=== PATIENT | male | born 1935 | race Caucasian/White ===

== ENCOUNTER 2017-04-07 12:40 | Day surgery (SDC) | payer MEDICARE, OTHER ==
[~2017-04-07] VITALS: Ht 182.9 cm; Wt 104.0 kg
[~2017-04-07 12:40] MED LIST: DABI150C PO; DILT60CA PO; DOFE0.25 PO; FENO160T7 PO; FENO200C PO; GLIP5TAB21 PO; MAGN500C4 PO; METF500T4 PO; OMEG1CAP2 PO; OMEP20CA11 PO; RANI150C4 PO; SAXA1TBM2 PO; Sodium Chloride LOK Flush 10 mL Syringe IV PRN; TELM20TA PO; fentaNYL-PF 50 mCg/mL 2 mL Inj IVPUSH PRN
[2017-04-07 13:11] VITALS: BP 118/71; PULSE 64; RESP 16; O2SAT 95
--- NOTE | 2017-04-07 13:58 | PCM.ENDEGD ---
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 Scope introduced esophagus. Esophagus showed normal shiny whitish mucosa consistent with squamous cell component. Z line was noted at 40 cm from the incisors. [place]-colored mucosa noted up to 42 cm. Narrow banding done. No ulcer mass erosion noted. 4 quadrant biopsies done. Scope further advanced to the stomach. In the antrum, there were about 5 clean-based ulcers 2-4 mm in size with surrounding edema. Biopsies were done at the largest sites Cardia fundus body antrum pylorus were all visualized. Retroflexion was done. Stomach was easily inflated and deflatable using air. Scope further advanced to the distal duodenum. Duodenum revealed normal villous structures with normal appearing folds without any mass ulcer erosion. Impression Ayers's esophagus Gastric ulcers Recommendation Continue PPI NSAIDs Presedation Assessment Risks and Benefits Informed consent was obtained from the patient after all risks and benefits including but not limited to drug reaction, infection, pain, bleeding, perforation, as well as alternatives were discussed. Patient monitoring Continuous pulse oximetry, cardiac monitoring, blood pressure monitoring, IV access, and oxygen at 2L per nasal cannula. Periprocedural Fentanyl: Fentanyl 50mcg Incrementally Midazolam: Midazolam 2mg Incrementally Complications There were no periprocedural complications identified. Post Procedure Plan Post Procedure Recommendations 1. Restrict activities today. 2. Resume normal activities in the morning. 3. Resume medications. 4. GERD behavioral modification: - Avoid fatty, acidic, spicy, large meals - Do not lie down after meals - Do not eat or drink anything for at least 2 1/2 hours before going to bed at night - Discontinue tobacco and alcohol - Decrease or avoid caffeine - Avoid chocolate and mints - Decrease weight - Avoid aspirin and non steroidal anti-inflammatory agents (NSAID) such as Aleve, Advil, Mobic, Naproxen, Ibuprofen, etc 5. Add proton pump inhibitor. Take 30 minutes before 1st meal of the day. 6. Patient informed of normal post procedure side effects as bloating, drowsiness, blood streaking in the stool 7. If gastric biopsy reveal H.pylori, continue with appropriate treatment 8. If small bowel biopsy reveals celiac, continue with appropriate treatment 9. Please don't hesitate to call me with any questions Elkin Valentine MD Apr 07, 2017 13:58
[2017-04-07 13:59] VITALS: BP 114/78; PULSE 68; RESP 16; O2SAT 93
[2017-04-07 14:09] VITALS: BP 109/64; PULSE 61; RESP 16; O2SAT 94
[2017-04-07] MEDS ORDERED: 0.9% Sodium Chloride 1,000 ML IV ONE (14:12)
--- NOTE | 2017-04-10 13:10 | PATH ---
SURGICAL PATHOLOGY Attending Physician:Elkin Valentine M.D. CASE STATUS: Signed Out PATIENT NAME: RAHEL JASMINE PID: [id number] : 1935 DATE COLLECTED:04/07/2017 00:00 SPECIMEN: 1: Gastric, Biopsy 2: Esophagus, Biopsy CLINICAL HISTORY: 1. GASTRIC ULCER BIOPSY 2. DISTAL ESOPHAGUS BIOPSY FINAL DIAGNOSIS: 1.GASTRIC ULCER BIOPSY: ANTRAL MUCOSA WITH CHANGES CONSISTENT WITH REACTIVE GASTROPATHY. Negative for evidence of Helicobacter on H&E stain. Negative for intestinal metaplasia. Negative for dysplasia and malignancy. 2.ESOPHAGUS BIOPSY: SQUAMOUS MUCOSA AND GASTRIC CARDIA-TYPE MUCOSA WITH CHRONIC INFLAMMATION AND REACTIVE EPITHELIAL CHANGES. Negative for specialized metaplasia of Ayers' s-type esophagus. Negative for dysplasia and malignancy. Negative for squamous intraepithelial eosinophils. ICD10 K31.89 GROSS DESCRIPTION: Received are two formalin-filled containers, both labeled with the patient' s name: 1. Received in formalin, labeled with the patient' s name and "gastric ulcer biopsy", are three fragments of stearns, soft tissue ranging in size from less than 0.1 cm by less than 0.1 cm by less than 0.1 cm to 0.2 x 0.2 x 0.1 cm. All fragments are totally submitted in cassette 1A. 2. Received in formalin, labeled with the patient' s name and "distal esophagus biopsy", are two fragments of stearns, soft tissue ranging in size from 0.1 x 0.1 x 0.1 cm to 0.2 x 0.1 x 0.1 cm. All fragments are totally submitted in cassette 2A. ([id number]) MICRO DESCRIPTION: See diagnosis. ICD-9 CODES: CPT CODES: 1: 02201 2: 73195 Electronically Signed Out Jayson Calderon MD [facility] Pathology [facility] [address], [place] [address] Technical component performed at [facility], [facility] [address], [place], [address]
== END 2017-04-07 23:59 | disposition home or self-care (01) ==
LOC: MERGE 12:40 → END 12:40
PROVIDERS: ATTEND Internal Medicine
DX: K22.70 Barrett's esophagus without dysplasia (principal); K25.9 Gastric ulcer, unspecified as acute or chronic, without hemorrhage or perforation; K31.9 Disease of stomach and duodenum, unspecified; K21.9 Gastro-esophageal reflux disease without esophagitis; I25.9 Chronic ischemic heart disease, unspecified; I25.10 Atherosclerotic heart disease of native coronary artery without angina pectoris; I10 Essential (primary) hypertension; E78.00 Pure hypercholesterolemia, unspecified; E11.9 Type 2 diabetes mellitus without complications; E03.9 Hypothyroidism, unspecified; I48.91 Unspecified atrial fibrillation; Z86.73 Personal history of transient ischemic attack (TIA), and cerebral infarction without residual deficits; N40.0 Benign prostatic hyperplasia without lower urinary tract symptoms; Z79.01 Long term (current) use of anticoagulants; Z79.84 Long term (current) use of oral hypoglycemic drugs
CPT/HCPCS: 43239; G0500; J7030

== ENCOUNTER → 2017-07-10 | Day surgery (SDC) | payer MEDICARE, OTHER ==
[~2017-07-10] MED LIST changes: +CHOL5000 PO; -FENO160T7 PO
[2017-07-10 11:41] VITALS: BP 139/85; PULSE 78; RESP 16; O2SAT 95
[2017-07-10] MEDS: 0.9% Sodium Chloride 1,000 ML IV SCH ×2 (12:43→13:08)
--- NOTE | 2017-07-10 13:17 | PCM.ENDCOL ---
Colonoscopy Date of Service: Jul 10, 2017 Physician Elkin Valentine MD Pre Procedure Diagnosis: Blood in the stools fecal incontinence change in bowel patterns Post Procedure Dx & Findings: Polyp hemorrhoid diverticula Procedure Colonoscopy PROCEDURE IN DETAIL: Prep adequate Withdrawal time 12 minutes After unremarkable rectal examination the Olympus video colonoscope was inserted patient's anal canal and was advanced to cecum. Landmarks were identified including the ileocecal valve and appendiceal orifice. Scope was withdrawn systematically. Visualized colonic mucosa showed healthy shiny mucosa with normal healthy-appearing vasculature. In the ascending colon there was a 2 mm polyp which was removed completely using cold snare. Patient had diverticuli medium-size mostly in the sigmoid colon all the way into the transverse colon. In the rectum retroflexion was done which showed hemorrhoids. Anal canal was inspected carefully on the way out and hemorrhoids noted. Impression Polyp 1 status post complete removal Diverticuli Hemorrhoids Decrease sphincterotome Recommendation Repeat colonoscopy in 5 years Diverticular diet Presedation Assessment Risks and Benefits Informed consent was obtained from the patient after all risks and benefits including but not limited to drug reaction, infection, pain, bleeding, perforation, as well as alternatives were discussed. Patient monitoring Continuous pulse oximetry, cardiac monitoring, blood pressure monitoring, IV access, and oxygen at 2L per nasal cannula. Periprocedural Fentanyl: Fentanyl 75mcg Incrementally Midazolam: Midazolam 3mg Incrementally Complications There were no periprocedural complications identified. Post Procedure Plan Post Procedure Recommendations 1. Restrict activities today. 2. Resume normal activities in the morning. 3. Resume medications. 4. Patient informed of normal post procedure side effects as bloating, drowsiness, blood streaking in the stool. 5. average risk CRCS. If colon polyps come back as: -Hyperplastic- can repeat colonoscopy in 10 years -Tubular adenoma- repeat colonoscopy in 5 years -Tubulovillous/villous adenoma- repeat colonoscopy in 3 years -If any dysplasia- return to clinic as soon as possible 6. Please don't hesitate to call me with any questions. Elkin Valentine MD Jul 10, 2017 13:17
[2017-07-10 13:18] VITALS: BP 122/69; PULSE 68; RESP 16; O2SAT 97
[2017-07-10 13:28] VITALS: BP 118/69; PULSE 68; RESP 16; O2SAT 96
[2017-07-10 13:38] VITALS: BP 123/70; PULSE 67; RESP 16; O2SAT 95
--- NOTE | 2017-07-15 17:10 | PATH ---
SURGICAL PATHOLOGY Attending Physician:Elkin Valentine M.D. CASE STATUS: Signed Out PATIENT NAME: RAHEL JASMINE PID: [id number] : 1935 DATE COLLECTED:07/10/2017 00:00 SPECIMEN: Colon, Polyp CLINICAL HISTORY: 1). ASCENDING COLON POLYP FINAL DIAGNOSIS: Ascending Colon Polyp, Biopsy: Tubular adenoma. ICD10: D12.2 GROSS DESCRIPTION: The specimen is received in one formalin filled container labeled with the patient's name, sublabeled "ascending colon polyp" and consists of a 0.3 x 0.2 x 0.2 CM portion of tissue which is entirely submitted in cassette. 07/11/2017DC ICD-9 CODES: CPT CODES: 1: 30049 Electronically Signed Out Kb Guaman MD, Ph.D. [facility] Pathology [facility] [address], [place] [address] Technical component performed at [facility], [address] [place] [address] [address], [place], [address]
== END | disposition home or self-care (01) ==
LOC: END 00:55
PROVIDERS: ATTEND Internal Medicine
DX: K92.1 Melena (principal); D12.2 Benign neoplasm of ascending colon; K57.30 Diverticulosis of large intestine without perforation or abscess without bleeding; K64.8 Other hemorrhoids; K21.9 Gastro-esophageal reflux disease without esophagitis; I25.9 Chronic ischemic heart disease, unspecified; E03.9 Hypothyroidism, unspecified; E11.9 Type 2 diabetes mellitus without complications; E78.00 Pure hypercholesterolemia, unspecified; I10 Essential (primary) hypertension; I48.91 Unspecified atrial fibrillation; R15.9 Full incontinence of feces; Z86.73 Personal history of transient ischemic attack (TIA), and cerebral infarction without residual deficits; Z79.01 Long term (current) use of anticoagulants; Z79.84 Long term (current) use of oral hypoglycemic drugs
CPT/HCPCS: 45385; 99153; G0500; J2250; J3010; J7030